=== PATIENT | male | born 1950 | race Caucasian/White ===

== ENCOUNTER 2019-10-16 17:04 | Emergency (ER) | payer OTHER, SELFPAY ==
[2019-10-16 17:04] VITALS: BP 128/107; PULSE 82; RESP 12; TEMP 37.1; O2SAT 98
--- NOTE | 2019-10-16 17:10 | ECG_ITS ---
Measurements Intervals [place] Rate: 82 P: 6 TN: 194 QRS: -84 QRSD: 170 T: 9 QT: 399 QTc: 466 Interpretive Statements SINUS RHYTHM RIGHT BUNDLE BRANCH BLOCK LEFT ANTERIOR FASCICULAR BLOCK ABNORMAL ECG Electronically Signed On 10-17-2019 7:02:54 CDT by Frankie Kemp D.O.
[2019-10-16] MEDS: TETANUS,DIPHTHERIA,AC PERTUSSIS ADULT (0.5 ML) BOOSTRIX IM (17:48)
[2019-10-16 17:53] VITALS: BP 128/76; PULSE 79; RESP 16; O2SAT 99
--- NOTE | 2019-10-16 18:01 | ED.GENADULT ---
HPI - General Adult General Chief complaint: Extremity Injury, Lower Stated complaint: leg injury, fb Time Seen by Provider: 10/16/19 17:20 Source: patient Mode of arrival: ambulatory Limitations: no limitations History of Present Illness HPI narrative: Patient is a 69-year-old male who presents with puncture wound to the right calf patient stepped on a board that had a drill on it causing the drill to puncture the right calf region patient notes aching pain at this location notes after which she went inside and began to get pale and sat down and had a brief syncopal episode denies any injury or trauma related to the syncopal episode patient notes he does not have his tetanus up-to-date on arrival patient in the room noting only mild discomfort of the calf has no other complaints or concerns Related Data Allergies Allergy/AdvReac Type Severity Reaction Status Date / Time No Known Allergies Allergy Verified 10/16/19 17:48 Review of Systems Review of Systems: All systems reviewed & are unremarkable except as noted in HPI and below PMFSH Family History Family History (Updated 01/04/14 @ 07:13 by DOCTOR UNKNOWN) Mother Family history of lymphoma Family history of congestive heart failure Social History Social History Smoking status: Never smoker Second hand tobacco smoke exposure: No Alcohol intake: current Exam Narrative: Exam Narrative: GENERAL: Well-appearing, well-nourished, and in no acute distress. HEAD: Normocephalic, atraumatic. EYES: PERRLA and EOMI. ENT: Nares clear, no rhinorrhea or epistaxis. Mucous membranes moist. CHEST: Clear to auscultation. No respiratory distress. No wheezes rales or rhonchi HEART: Regular rate and rhythm. No murmur heard. Normal peripheral pulses. EXTREMITIES: Normal range of motion. No edema. SKIN: Warm, dry, no rash. Small puncture wound to the right calf NEURO: No focal deficits. Alert and oriented x3. Cranial nerves II through XII grossly intact. Normal speech. Neurovascularly intact PSYCH: Normal mood and affect. Course Course Emergency Course: Patient in the room in no distress resting comfortably afebrile nontoxic-appearing felt appropriate for outpatient reevaluation Vital Signs Vital signs: Vital Signs Temperature 98.8 F 10/16/19 17:04 Pulse Rate 82 10/16/19 17:04 Respiratory Rate 12 10/16/19 17:04 Blood Pressure 128/107 H 10/16/19 17:04 Pulse Oximetry 98 10/16/19 17:04 Temperature 98.8 F 10/16/19 17:04 Pulse Rate 79 10/16/19 17:53 Respiratory Rate 16 10/16/19 17:53 Blood Pressure 128/76 10/16/19 17:53 Pulse Oximetry 99 10/16/19 17:53 Medical Decision Making MDM Narrative Medical decision making narrative: Patient in the room in no distress aware of case findings treatment plan and diagnosis agreeing to follow-up as directed or to return if symptoms worsen or concerns. Patient with likely vasovagal syncope. Patients injury or pain is consistent with musculoskeletal etiology. No signs of neurological or vascular compromise on exam. Compartments and tisues are soft without signs of compartment syndrome. Pain is felt appropriate for further evaluation on an outpatient basis. Vital Signs Vital Signs: Vital Signs Temperature 98.8 F 10/16/19 17:04 Pulse Rate 82 10/16/19 17:04 Respiratory Rate 12 10/16/19 17:04 Blood Pressure 128/107 H 10/16/19 17:04 Pulse Oximetry 98 10/16/19 17:04 Temperature 98.8 F 10/16/19 17:04 Pulse Rate 79 10/16/19 17:53 Respiratory Rate 16 10/16/19 17:53 Blood Pressure 128/76 10/16/19 17:53 Pulse Oximetry 99 10/16/19 17:53 Discharge Plan Discharge Clinical Impression: Puncture wound of leg not thigh, Syncope Patient Disposition: Home, Self-Care Condition: Stable Instructions: Antibiotic Form, Acute Wounds (ED), Syncope (DC) Additional Instructions: Follow up with your primary care
== END 2019-10-16 18:19 | disposition home or self-care (01) ==
PROVIDERS: Emergency Provider Emergency Medicine; PCP Internal Medicine
DX: S81.831A Puncture wound without foreign body, right lower leg, initial encounter (principal); Z23 Encounter for immunization; I45.2 Bifascicular block; W29.8XXA Contact with other powered hand tools and household machinery, initial encounter
CPT/HCPCS: 90471; 90715; 93005; 99283

== ENCOUNTER 2020-02-07 15:09 | Observation (INO) | payer OTHER, SELFPAY ==
[2020-02-07 15:33] VITALS: BP 113/86; PULSE 86; RESP 16; TEMP 36.4; O2SAT 98
--- NOTE | 2020-02-07 15:38 | ED.MALEGU ---
HPI - Male Genitourinary General Chief complaint: Urogenital-Male Stated complaint: BLADDDER INFECTION Time Seen by Provider: 02/07/20 15:38 History of Present Illness HPI Narrative: Gross hematuria since this morning. Associated with dysuria. Saw his urologist today. He was told that it was a UTI, but he is not retaining urine. He was started on Bactrim. After going home he began having pain and feeling like he was not able to fully empty his bladder. He has no h/o urinary retention. Related Data Home Medications Medication Instructions Recorded Confirmed Glucosamine Chondroitin 1,500 mg PO DAILY 02/07/20 02/07/20 Vit C(ascorb.calcium)(mv-mins) 500 mg PO DAILY 02/07/20 02/07/20 allopurinol 300 mg PO DAILY 02/07/20 02/07/20 aspirin [Adult Low Dose Aspirin] 81 mg PO DAILY 02/07/20 02/07/20 cholecalciferol (vitamin D3) 1,000 mg PO DAILY 02/07/20 02/07/20 lisinopril-hydrochlorothiazide 1 tablet PO DAILY 02/07/20 02/07/20 magnesium 250 mg PO DAILY 02/07/20 02/07/20 Allergies Allergy/AdvReac Type Severity Reaction Status Date / Time No Known Allergies Allergy Verified 02/07/20 18:11 Review of Systems Review of Systems: All systems reviewed & are unremarkable except as noted in HPI and below Constitutional: Constitutional: Denies fever(s) and Denies weakness Cardiovascular: Cardiovascular: Denies chest pain Respiratory: Respiratory: Denies dyspnea Gastrointestinal: Gastrointestinal: Denies abdominal pain, Denies nausea and Denies vomiting Genitourinary: Genitourinary: Reports hematuria, Reports dysuria and Reports urinary frequency Musculoskeletal: Musculoskeletal: Denies back pain Neurologic: Denies dizziness and Denies weakness Hematologic/Lymphatic: Hematologic/Lymphatic: Denies easy bleeding and Denies easy bruising PMFSH Family History Family History Mother Family history of lymphoma Family history of congestive heart failure Social History Social History Smoking packs per day: 0 Smoking cigarettes per day: 0.0 Years smoked: 5 Smoking pack-years: 0.00 Smoking status: Former smoker Tobacco type: cigarettes Second hand tobacco smoke exposure: No Alcohol intake: current Drinks per week: 7 Substance use: never Substance use type: does not use Spiritual care concerns: No Exam Const: General: healthy appearing, no acute distress and alert Orientation/consciousness: patient oriented x3 HENMT: Head: normal to inspection Neck: Neck: normal visual inspection and no lymphadenopathy Chest: Chest palpation & inspection: no tenderness Resp: Effort & Inspection: normal respiratory effort Auscultation: clear to auscultation bilaterally, no rales, no rhonchi and no wheezes Cardio: Jugular venous distension: no JVD Rate: regular rate Rhythm: regular rhythm Heart sounds: no murmurs GI: Inspection: non-distended GI Palp: Yes Soft to palpation and No Tenderness to palpation present (GI) Skin: General skin exam: normal color Neuro: General: patient oriented x3, moves all extremities and no focal motor deficits Cranial nerves: Yes CN's II-XII intact bilaterally Speech: normal speech Gait exam (Neuro): Normal gait present Extrem: General: no edema Psych: Appearance: well kempt Affect: normal affect Course Vital Signs Vital signs: Vital Signs Temperature 36.4 C 02/07/20 15:33 Pulse Rate 86 02/07/20 15:33 Respiratory Rate 16 02/07/20 15:33 Blood Pressure 113/86 02/07/20 15:33 Pulse Oximetry 98 02/07/20 15:33 Temperature 36.7 C 02/08/20 14:00 Pulse Rate 77 02/08/20 14:00 Respiratory Rate 16 02/08/20 14:00 Blood Pressure 142/70 H 02/08/20 14:00 Pulse Oximetry 100 02/08/20 14:00 MDM - Male Genitourinary Lab Data Result diagrams: 02/07/20 17:58 02/07/20 17:58 Labs: Lab Results 02/07/20 R
[2020-02-07] MEDS: LIDOCAINE HCL 2% GEL UROJET 10 ML PKG (16:38)
[2020-02-07 16:42] LABS: Bilirubin Urine Negative (Negative); Blood Urine 3+ (Negative); Glucose Urine UA Negative (Negative); Ketones Urine Negative (Negative); Leukocyte Esterase Ur Negative LEU/UL (Negative); Nitrate Urine Negative (Negative); Protein Urine 3+ mg/dL (Negative); Specific Grav Ur 1.025 (1.001-1.035); Urobilinogen Urine 0.2 mg/dL (<2.0); pH Urine 6.5 (5.0-9.0)
[2020-02-07 16:44] LABS: Add Urine Microscopic? YES; Appearance Urine Turbid (Clear); Color Urine Red (Yellow)
[2020-02-07 16:47] LABS: RBC Urine >75 /hpf (0-2)
[2020-02-07 16:48] LABS: WBC Urine 0-3 /hpf (0-3)
[2020-02-07 16:49] LABS: Bacteria Urine None seen /hpf; Squamous Epithelial Cell Urine Rare /hpf (Few)
[2020-02-07 17:15] VITALS: BP 132/81; BP 137/65; PULSE 67; PULSE 78; RESP 18; O2SAT 100; O2SAT 97
[2020-02-07 18:08] LABS: Basophils Percent Auto 0.2 % (0.2-1.2); Eosinophils Percent Auto 0.3 % (0-4.4); Hematocrit 46.1 % (42.0-52.0); Hemoglobin 14.9 g/dL (14.0-18.0); Immature Granulocyte Absolute 0.03 K/mm3 (0.00-0.031); Immature Granulocyte Percent A 0.3 % (0-0.5); Lymphocytes Absolute Auto 1.58 K/mm3 (0.9-3.2); Lymphocytes Percent Auto 17.9 % (18.3-44.2); Mean Corpuscular HGB Conc 32.3 g/dl (32-36); Mean Corpuscular Volume 86.5 fl (80-100); Mean Platelet Volume 9.9 fl (7.4-10.4); Monocytes Absolute Auto 0.7 K/mm3 (0.1-0.6); Monocytes Percent Auto 7.9 % (2.6-8.5); Neutrophils Absolute Auto 6.5 K/mm3 (1.3-6.7); Neutrophils Percent Auto 73.4 % (45.5-73.1); Platelet Count Result 224 k/mm3 (150-375); Red Blood Count 5.33 M/mm3 (4.6-6.20); Red Cell Distribution Width 13.2 % (11.5-14.5); White Blood Count 8.8 K/mm3 (4.5-10.0)
[2020-02-07 18:17] LABS: Prothrombin Time 13.3 Seconds (11.1-14.7)
[2020-02-07 18:18] LABS: Partial Thromboplastin Time 28.6 SECONDS (22.3-36.8)
[2020-02-07 18:19] LABS: Anion Gap 7 mmol/L (8-16); Blood Urea Nitrogen 23 mg/dL (9-20); Carbon Dioxide 26 mmol/L (22-30); Chloride 106 mmol/L (98-107); Estimated CRCL calculation 72 ml/min; Estimated Glomerular Filt Rate > 60; Glucose 97 mg/dL (75-110); Potassium 4.1 mmol/L (3.4-5.0); Sodium 139 mmol/L (137-145)
--- NOTE | 2020-02-07 19:30 | PC.NURSE ---
Patient 3 way llamas blocked/aspirated of 180ml of blood clots/urinen/NS--draining to gravity bag another 3000ml irrigate started per verbal order Dr Domingo.
--- NOTE | 2020-02-07 20:39 | PC.NURSE ---
Patient again aspirated of 120ml clots/solution before free flowing---3000+ bloody fluid emptied from gravity bag
--- NOTE | 2020-02-07 21:23 | ADMGEN ---
This patient, Jerson Leahy, was admitted to Medical Room 254-01. Patient/family oriented to hospital policies and general routines including ID bracelet, bed and alarms, visiting hours, pain management, procedures, bathroom and other care routines, personal items, smoking policy, room service/diet, and visiting hours. Valuables list has been completed. Information on how to activate the Rapid Response Team has been discussed. Patient/Family are encouraged to report perceived risks to care and to ask questions if they do not understand what they are told or what they should do.
[2020-02-07] MEDS: LACTATED RINGERS 1,000 ML 125 ML IV CONT (21:48)
[2020-02-07 22:00] VITALS: BP 130/72; PULSE 75; RESP 20; TEMP 36.7; O2SAT 98; BMI 31.6
[2020-02-08] MEDS: LACTATED RINGERS 1,000 ML 125 ML IV CONT (05:56)
[2020-02-08 06:00] VITALS: BP 127/64; PULSE 65; RESP 20; TEMP 36.5; O2SAT 98
--- NOTE | 2020-02-08 07:10 | PM.IMHP ---
H&P: HPI History of Present Illness Date/Time: 02/08/20 07:10 Chief complaint: hematuria Narrative: Jerson Leahy is a 69 year old male well known to our practice with a longstanding history of BPH. He is status post GreenLight laser prostatectomy several years ago by Dr. Coley. Over time, his outlet obstructive voiding symptoms his occurred to some extent. He was seen by one of my partners just yesterday, Dr. Wallace John, with gross hematuria obviously infected urine. I believe at that time to discuss possibility of doing a 2nd GreenLight laser prostatectomy procedure it sometime in the near future to manage these recurrence voiding symptoms. Yesterday, was started on oral Bactrim DS pending urine culture. By early evening his hematuria progressed with small clots prompting presentation to the ED at [facility]. He denies fevers or chills. Review of Systems Cardiovascular: Cardiovascular: Denies chest pain, Denies lightheadedness, Denies palpitations and Denies dyspnea Respiratory: Respiratory: Denies dyspnea Gastrointestinal: Gastrointestinal: Denies diarrhea, Denies nausea and Denies vomiting Genitourinary: Genitourinary: Reports hematuria, Denies dysuria, Reports urinary frequency and Reports urinary hesitancy Endocrine: Endocrine: Denies palpitations PMFSH Family History Family History Mother Family history of lymphoma Family history of congestive heart failure Social History Social History Smoking packs per day: 0 Smoking cigarettes per day: 0.0 Years smoked: 5 Smoking pack-years: 0.00 Smoking status: Former smoker Tobacco type: cigarettes Second hand tobacco smoke exposure: No Alcohol intake: current Drinks per week: 7 Substance use: never Substance use type: does not use Spiritual care concerns: No Meds Home Medications and Allergies Home Medications Medication Instructions Recorded Confirmed Type Glucosamine Chondroitin 1,500 mg PO DAILY 02/07/20 02/07/20 History Vit C(ascorb.calcium)(mv-mins) 500 mg PO DAILY 02/07/20 02/07/20 History allopurinol 300 mg PO DAILY 02/07/20 02/07/20 History aspirin [Adult Low Dose Aspirin] 81 mg PO DAILY 02/07/20 02/07/20 History cholecalciferol (vitamin D3) 1,000 mg PO DAILY 02/07/20 02/07/20 History lisinopril-hydrochlorothiazide 1 tablet PO DAILY 02/07/20 02/07/20 History magnesium 250 mg PO DAILY 02/07/20 02/07/20 History Allergies Allergy/AdvReac Type Severity Reaction Status Date / Time No Known Allergies Allergy Verified 02/07/20 18:11 Vital Signs Vital Signs - 24 hr 02/07/20 15:33 02/07/20 17:15 02/07/20 22:00 Temperature 97.6 F 98.0 F Pulse Rate 86 78 75 Respiratory Rate 16 18 20 Blood Pressure 113/86 137/65 130/72 Pulse Oximetry 98 100 98 02/08/20 06:00 Temperature 97.7 F Pulse Rate 65 Respiratory Rate 20 Blood Pressure 127/64 Pulse Oximetry 98 Exam Const: General: no acute distress Resp: Effort & Inspection: normal respiratory effort GI: Inspection: non-distended GI Palp: No abdominal tenderness and No Guarding due to palpation present (GI) Auscultation: normal bowel sounds H&P: Results Labs Labs: Short CBC 02/07/20 Range/Units 17:58 WBC 8.8 (4.5-10.0) K/mm3 Hgb 14.9 (14.0-18.0) g/dL Hct 46.1 (42.0-52.0) % Plt Count 224 (150-375) k/mm3 BMP 02/07/20 17:58 Sodium 139 Potassium 4.1 Chloride 106 Carbon Dioxide 26 BUN 23 H Creatinine 1.10 Glucose 97 Calcium 9.0 Urine 02/07/20 Range/Units 16:00 Urine Color Red H (Yellow) Urine Appearance Turbid H (Clear) Urine pH 6.5 (5.0-9.0) Ur Specific [place] 1.025 (1.001-1.035) Urine Protein 3+ H (Negative) mg/dL Urine Glucose (UA) Negative (Negative) mg/dL Assessment and Plan Assessment and plan (1) BPH loc w urin obs/LUTS: Code(s): N40.1 - Benign p
[2020-02-08] MEDS: ACETAMINOPHEN 500 MG TABLET 1000 MG PO (09:03)
[2020-02-08 11:22] VITALS: BP 126/75; PULSE 85; RESP 16; TEMP 36.7; O2SAT 97
[2020-02-08 14:00] VITALS: BP 142/70; PULSE 77; RESP 16; TEMP 36.7; O2SAT 100
--- NOTE | 2020-02-08 15:05 | PM.DS ---
DS: Admitting Diagnosis Admitting Diagnosis Admitting Diagnosis: hematuria DS: Summary Time Spent with Patient Time attestation: Total time spent providing and/or coordinating discharge services: 20 minutes Patient presented to the ER with hemorrhagic cystitis, he was taking Bactrim at home, which was given to him yesterday in the office by Dr. John. He was diagnosed with a UTI at his OV. He is awaiting a green light laser for BPH with Dr. John but is reluctant to schedule it d/t COVID -19 concerns. He remained on CBI overnight following a catheter insertion, which did clear his urine today, his llamas was removed and he urinated >400cc on his own. His PVR is 40cc today after catheter removal. Patient will go home and resume Bactrim and all other home medications, activity as tolerated, regular diet and call Dr. John to follow up to schedule Green Light Laser. Exam Resp: Effort & Inspection: normal respiratory effort Cardio: Rate: regular rate GI: GI Palp: Yes Soft to palpation and No Tenderness to palpation present (GI) : Male General Exam: No edema Urinary Catheter: Urinary Catheter: patent and draining and urine clear Extrem: General: no edema DS: Data Data Completed and Pending Labs on day of discharge: Labs from last 24 hours 02/07/20 02/07/20 02/07/20 17:58 17:58 17:58 WBC 8.8 RBC 5.33 Hgb 14.9 Hct 46.1 MCV 86.5 MCH 28.0 MCHC 32.3 RDW 13.2 Plt Count 224 MPV 9.9 Immature Gran % (Auto) 0.3 Neut % (Auto) 73.4 H Lymph % (Auto) 17.9 L [place] % (Auto) 7.9 Eos % (Auto) 0.3 Baso % (Auto) 0.2 Lymph # (Auto) 1.58 [place] # (Auto) 0.7 H Eos # (Auto) 0.0 Baso # (Auto) 0.0 Abs Immat Gran (auto) 0.03 Absolute Neuts (auto) 6.5 Absolute Nucleated RBC 0.0 Nucleated RBC % 0.0 PT 13.3 INR 1.0 APTT 28.6 Sodium 139 Potassium 4.1 Chloride 106 Carbon Dioxide 26 Anion Gap 7 L BUN 23 H Creatinine 1.10 Estim Creat Clear Calc 72 Estimated GFR > 60 Glucose 97 Calcium 9.0 Urine Color Urine Appearance Urine pH Ur Specific [place] Urine Protein Urine Glucose (UA) Urine Ketones Ur Blood (Man) Urine Nitrate Urine Bilirubin Urine Urobilinogen Leukocyte Esterase Rfl Urine RBC Urine WBC Ur Squamous Epith Cells Urine Bacteria 02/07/20 16:00 WBC RBC Hgb Hct MCV MCH MCHC RDW Plt Count MPV Immature Gran % (Auto) Neut % (Auto) Lymph % (Auto) [place] % (Auto) Eos % (Auto) Baso % (Auto) Lymph # (Auto) [place] # (Auto) Eos # (Auto) Baso # (Auto) Abs Immat Gran (auto) Absolute Neuts (auto) Absolute Nucleated RBC Nucleated RBC % PT INR APTT Sodium Potassium Chloride Carbon Dioxide Anion Gap BUN Creatinine Estim Creat Clear Calc Estimated GFR Glucose Calcium Urine Color Red H Urine Appearance Turbid H Urine pH 6.5 Ur Specific [place] 1.025 Urine Protein 3+ H Urine Glucose (UA) Negative Urine Ketones Negative Ur Blood (Man) 3+ H Urine Nitrate Negative Urine Bilirubin Negative Urine Urobilinogen 0.2 Leukocyte Esterase Rfl Negative Urine RBC >75 H Urine WBC 0-3 Ur Squamous Epith Cells Rare Urine Bacteria None seen Discharge Plan Discharge Attending physician on discharge: Grayson Lopes Discharging Clinician: Sandie Hoyt Anticipated Discharge Date/Time: 02/08/20 15:02 Patient Disposition: Home, Self-Care Activity: september shower Diet: regular Discharge Instructions: Call Dr. John's office to schedule Green Light Laser Procedure as previously discussed. Resume Bactrim at home. Call if signs or symptoms of UTI would develop, iif you begin to have gross hematuria or a fever of >102. Patient Instructions: Antibiotic Form, Urinary Tract Infection in Men (ED) Stand Alone Forms: General Discharge Information Follow-up/Referrals: Kendall John MD [Physic
== END 2020-02-08 15:45 | disposition home or self-care (01) ==
LOC: ANHED 18:18 → ANH2MED 20:41
PROVIDERS: Admitting Provider Urology; Emergency Provider Emergency Medicine; PCP Physician Assistant; Visit Provider Urology
DX: N40.1 Benign prostatic hyperplasia with lower urinary tract symptoms (principal); N30.91 Cystitis, unspecified with hematuria; Z87.891 Personal history of nicotine dependence; Z90.79 Acquired absence of other genital organ(s)
CPT/HCPCS: 36415; 80048; 81001; 85025; 85610; 85730; 96361; 96365; 99285; A9270; G0378; J0696; J7120

== ENCOUNTER 2023-04-11 09:55 | Emergency (ER) | payer OTHER, SELFPAY ==
--- NOTE | ~2023-04-11 | XR_ITS ---
EXAMINATION: XR ankle RT min 3V, XR foot RT min 3V DATE: 04/11/2023 10:34 INDICATION: Right foot and ankle pain post injury one week prior TECHNIQUE: 1. Anteroposterior, mortise, additional oblique and lateral view of the right ankle were obtained. 2. Dorsoplantar, two oblique and lateral views of the right foot were obtained. COMPARISON: None. FINDINGS: Alignment is normal at the right foot and ankle. There is a tiny thin ossific density situated betwee n the medial margin of the distal tip of the lateral malleolus and the lateral margin of the talus co nsistent with a flake-like avulsion fracture. Unclear whether this arises from the fibular or talus. No other fractures identified. 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 Moderate-sized Achilles calcaneal spur. 4 mm very thin linear metallic foreign body in the superficial subcutaneous tissues plantar to the base of the fifth metatarsal. There is soft tissue swelling about the distal lower leg, ankle and extending over the dorsum of the foot. No ankle joint effusion. IMPRESSION: 1. Tiny flake-like avulsion fracture likely involving the anterior talofibular ligament but unclear w hether this involves the talar fibular footplate of the ligament. 2. 4 mm very thin linear wire-like metallic foreign body in the superficial subcutaneous tissues plan tar to the base of the fifth metatarsal. Reviewed, dictated and finalized at location A. [employer] GROUP [employer]GER IMPRESSION: 1. Tiny flake-like avulsion fracture likely involving the anterior talofibular ligament but unclear whether this involves the talar fibular footplate of the l igament. 2. 4 mm very thin linear wire-like metallic foreign body in the superficial sub cutaneous tissues plantar to the base of the fifth metatarsal.
[2023-04-11 10:19] VITALS: BP 119/80; PULSE 73; RESP 16; TEMP 36.7; O2SAT 98
--- NOTE | 2023-04-11 11:09 | ED.GENADULT ---
HPI - General Adult General Chief complaint: Extremity Injury, Lower Stated complaint: R FOOT INJURY Time Seen by Provider: 04/11/23 11:00 Source: patient, RN notes reviewed and old records reviewed Mode of arrival: ambulatory Limitations: no limitations History of Present Illness HPI narrative: 72-year-old male who presents to [facility] with complaints of injury to his right foot and ankle when he fell off of a ladder 1 week ago. Patient has bruising and swelling to the foot and ankle and has been walking on the leg since injury with increased pain and swelling noted in past 1-2 days. Patient reports that pain noted to be acute when he first applies carroll bearing. Patient has not taken any OTC pain medication or applied any ice to ankle or foot. MD complaint: fell off ladder one week ago Onset (ago): week(s) (1) Location: right and lower extremity (lateral ankle and foot) Severity: severe Severity scale (1-10): 8 Quality: aching and sharp Exacerbating factors: other Treatments prior to arrival: none Related Data Home Medications Medication Instructions Recorded Confirmed Glucosamine Chondroitin 1,500 mg PO DAILY 02/07/20 04/12/23 Vit C(ascorb.calcium)(mv-mins) 500 mg PO DAILY 02/07/20 04/12/23 allopurinol 300 mg tablet 300 mg PO DAILY 02/07/20 04/12/23 aspirin 81 mg tablet,delayed 81 mg PO DAILY 02/07/20 04/12/23 release (Adult Low Dose Aspirin) cholecalciferol (vitamin D3) 1,000 mg PO DAILY 02/07/20 04/12/23 magnesium 250 mg PO DAILY 02/07/20 04/12/23 losartan 100 mg tablet 100 mg PO DAILY 04/11/23 04/12/23 Allergies Allergy/AdvReac Type Severity Reaction Status Date / Time No Known Allergies Allergy Verified 04/12/23 14:16 Review of Systems Review of Systems: CONSTITUTIONAL: Denies fever, chills, or sweats. CARDIOVASCULAR: Denies chest pain, palpitations, or edema. RESPIRATORY: Denies cough or dyspnea. SKIN: Denies rash or itching. Abrasion to the right lower leg, swelling to right ankle and foot with ecchymosis,redness to dorsal aspect of right foot MUSCULOSKELETAL: Reports pain to lateral right ankle with swelling from injury from fall 1 week ago NEUROLOGIC: Denies numbness, or weakness. All systems reviewed & are unremarkable except as noted in HPI and below PMFSH Past Medical History Medical History (Updated 04/13/23 @ 10:35 by Phuong Ptael NP) BPH (benign prostatic hyperplasia) Gout Hypertension Family History Family History Mother Family history of lymphoma Family history of congestive heart failure Social History Social History Smoking packs per day: 0 Smoking cigarettes per day: 0.0 Years smoked: 5 Smoking pack-years: 0.00 Smoking status: Former smoker Tobacco type: cigarettes Second hand tobacco smoke exposure: No Alcohol intake: current Drinks per week: 7 Substance use: never Substance use type: does not use Spiritual care concerns: No Comments At time of signature, agree with nursing past medical, surgical, social and family history. There is no relevant family history pertinent to the presenting complaint Exam Narrative: GENERAL: Well-appearing, well-nourished, and in no acute distress. HEAD: Normocephalic, atraumatic. EYES: PERRLA and EOMI. ENT: Nares clear, no rhinorrhea or epistaxis. Mucous membranes moist. NECK: Supple. no lymphadenopathy CHEST: Clear to auscultation. No respiratory distress.SAO2 98% on room air HEART: Regular rate and rhythm. No murmur heard. Normal peripheral pulses. ABDOMEN: Soft, nontender, nondistended, normal active bowel sounds. EXTREMITIES: Normal range of motion. No edema.Exception noted to swelling and ecchymosis to lateral right ankle and foot from injury, pedal and posterior pulses palpable increased pain the past 2 days especially with weight bearing, SKIN: Warm, dry,some redness to the lateral forefoo
--- NOTE | 2023-04-11 13:03 | PC.NURSE ---
1228 returned for crutches for patient-dispensed for patient's height.
== END 2023-04-11 12:12 | disposition home or self-care (01) ==
PROVIDERS: Emergency Provider Registered Nurse; PCP Physician Assistant
DX: S82.891A Other fracture of right lower leg, initial encounter for closed fracture (principal); W11.XXXA Fall on and from ladder, initial encounter; N40.0 Benign prostatic hyperplasia without lower urinary tract symptoms; I10 Essential (primary) hypertension; M10.9 Gout, unspecified; Z87.891 Personal history of nicotine dependence; Z79.82 Long term (current) use of aspirin
CPT/HCPCS: 29515; 73610; 73630; 99214; G0463

== ENCOUNTER → 2024-01-24 12:10 | Outpatient (CLI) | payer OTHER, SELFPAY ==
--- NOTE | ~2024-01-24 | XR_ITS ---
3 VIEWS THORACIC SPINE Ordering provider: Susan Martin, PA History: . RIGHT SIDE LBP AFTER CROUCHING . Comparison: None. FINDINGS: VERTEBRAL BODIES: Normal height and alignment. No visible fracture or subluxation. Degenerative hernandez es of the spine. DISK SPACES: Normal. SOFT TISSUES: Normal. IMPRESSION: No acute osseous abnormality of the thoracic spine. Reviewed, dictated and finalized at location A.
--- NOTE | ~2024-01-24 | XR_ITS ---
3 VIEWS LUMBAR SPINE Ordering provider: Susan Martin, DILCIA History: . RIGHT SIDE LOW BACK PAIN AFTER CROUCHING . Comparison: None. FINDINGS: VERTEBRAL BODIES:Levoscoliosis. Anterior loss of height is seen in L2 and L1 which is most likely chr onic. Otherwise, No visible fracture or subluxation. Degenerative changes of the spine. Multilevel facet joint disease DISK SPACES: Narrowing of the disc L2-L3 and L3-L4. SOFT TISSUES: Normal. IMPRESSION: No acute osseous abnormality lumbar spine. Reviewed, dictated and finalized at location A.
== END ==
PROVIDERS: PCP Physician Assistant; Visit Provider Physician Assistant
DX: M54.50 Low back pain, unspecified (principal)
CPT/HCPCS: 72072; 72100